=== PATIENT | male | born 2000 | race Caucasian/White ===

== ENCOUNTER 2018-07-06 15:29 | Emergency (ER) | payer BC ==
[2018-07-06 15:41] VITALS: BP 141/98
--- NOTE | 2018-07-06 16:04 | EDPHY ---
H & P Time Seen by Provider: 07/06/18 15:59 HPI/ROS: CHIEF COMPLAINT: Left ankle pain HISTORY OF PRESENT ILLNESS: 17 old male via private vehicle complaining of acute left lateral ankle pain after he rolled his foot playing basketball last evening. Unable to bear weight. No fall from height. No calcaneus pain. No proximal tibia or fibula pain. No hip or knee pain or back pain. No paresthesia. Intact skin. PHYSICAL EXAM (Prior to examination, patient consented to physical exam, hands were washed and my usual and customary physical exam procedures followed) 1) GENERAL: Well-developed, well-nourished, alert and oriented. Appears to be in no acute distress. 2) HEAD: Normocephalic 3) HEENT: Pupils equal, round, reactive to light bilaterally. 4) LUNGS: Breathing comfortably. 5) MUSCULOSKELETAL: Tender to palpation lateral malleolus with soft tissue swelling noted to both the medial and lateral malleoli. proximal tibia and fibula nontender .5th MT nontender negative Burnett test, compartments soft 6) SKIN: Intact. No ecchymosis. 7) VASCULAR: DP,PT pulses and cap refill present and brisk DIFFERENTIAL DIAGNOSIS: in no particular order including but not limited to fracture, sprain, compartment syndrome Procedure: Crutches indications for crutch use discussed with patient. Patient fitted for crutches by ER staff. Observed ambulating with crutches. I think the patient has the capacity to safely use crutches. Usual and customary crutch walking precautions provided Procedure: Splint A dwain boot splint was applied by ER computer service technician. After application of the splint I returned and re-examined the patient. The splint was adequately immobilizing the joint and distal to the splint the patient's circulation and sensation were intact. Patient shows no signs of compartment syndrome. Was given orthopedic precautions. Smoking Status: Never smoked Constitutional: Initial Vital Signs Temperature (C) 37.1 C 07/06/18 15:39 Heart Rate 78 07/06/18 15:39 Respiratory Rate 17 07/06/18 15:39 Blood Pressure 141/98 H 07/06/18 15:39 O2 Sat (%) 95 07/06/18 15:39 O2 Delivery Mode Room Air Allergies/Adverse Reactions: No Known Allergies Allergy (Unverified 07/06/18 15:38) Home Medications: Medication Instructions Recorded oxyCODONE/APAP [Percocet 1 tab PO Q6 #7 tab 07/06/18] MDM/Departure - MDM Imaging Results: Imaging Impressions Ankle X-Ray 07/06/18 15:42 Impression: No definite fracture. Suspect small smooth bone along lateral aspect of talus is an accessory ossicle or remnant of remote injury. Images reviewed myself ED Course/Re-evaluation: Discussed with the patient limitations of x-ray. He has been informed that non osseous injury not ruled out. Stressed follow up with Orthopedics and given my usual and customary orthopedic precautions and instructions. Given analgesia. Given orthopedic referral. Dwain marti, crutches provided. He feels comfortable being discharged. All questions and concerns addressed by myself. Care of patient under supervision of secondary supervising physician Dr Huynh - Depart Disposition: Home, Routine, Self-Care Clinical Impression: Basketball activities Left ankle sprain Qualifiers: Encounter type: initial encounter Involved ligament of ankle: unspecified ligament Qualified Code(s): S93.402A - Sprain of unspecified ligament of left ankle, initial encounter Condition: Good Instructions: Ankle Sprain (ED) Additional Instructions: Return to the ER immediately if you experience discoloration, have worsening pain, numbness, tingling, or any other symptoms that concern you. If you received x-rays in the emergency department today, be advised, that ligamentous , tendon, muscular, and other non-bony injury cannot be fully ruled out. Try to keep your affected extremity elevated above the level of your chest, and keep cold packs on the affected area, for the next 48 hours. Adult Pain & Fever Control: We recommend Acetaminophen (Tylenol) and Ibuprofen (Motrin,Advil) for pain and fever control. When fever is high or pain severe, both drugs can be used at the same time, but at different intervals. Please note the time differences. Your dose is: Acetaminophen [650]mg every 4 to 6 hours Ibuprofen 600mg every 6 hours with food OR Note: do not take Acetaminophen with Hydrocodone (Vicodin, Lortab) or Oycodone (Percocet). These medications also contain Acetaminophen. No more than 3000mg of Acetaminophen should be taken in 24 hours (for an adult). Prescriptions: oxyCODONE/APAP 5/325 [Percocet 5/325] 1 tab PO Q6 #7 tab Referrals: Estelita Hwang MD [Medical Doctor] - As per Instructions
== END 2018-07-06 16:24 | disposition home or self-care (01) ==
DX: S93.402A Sprain of unspecified ligament of left ankle, initial encounter (principal); X50.9XXA Other and unspecified overexertion or strenuous movements or postures, initial encounter; Y92.310 Basketball court as the place of occurrence of the external cause; Y93.67 Activity, basketball
CPT/HCPCS: L4386